=== PATIENT | female | born 1980 | race Two or more races ===

== ENCOUNTER 2023-06-07 10:32 | Inpatient (IN) | payer OTHER ==
[2023-06-07 11:37] VITALS: BMI 53.9
[2023-06-07] MEDS ORDERED: diazePAM 5 MG TABLET PO PRN (12:04)
[2023-06-07] MEDS ORDERED: BISMUTH SUBSALICYLATE 524 MG/30 ML PO PRN (12:10)
[2023-06-07] MEDS ORDERED: P-EPHED 60MG/TRIPROLIDI 2.5MG TABLET PO PRN (12:10)
[2023-06-07] MEDS ORDERED: BENZOCAINE/MENTHOL (CHLORASEPTIC ) LOZENGE MM PRN (12:10)
[2023-06-07] MEDS ORDERED: NICOTINE POLACRILEX 2 MG GUM BUC PRN (12:10)
[2023-06-07] MEDS ORDERED: POLYETHYLENE GLYCOL (HEALTHYLAX) 3350 17 GM PACKET PO PRN (12:10)
[2023-06-07] MEDS ORDERED: LOPERAMIDE HCL 2 MG CAPSULE PO PRN (12:10)
[2023-06-07] MEDS ORDERED: BENZONATATE 200 MG CAPSULE PO PRN (12:10)
[2023-06-07] MEDS ORDERED: ONDANSETRON *ODT* 4 MG TABLET SL PRN (12:10)
[2023-06-07] MEDS ORDERED: MAGNESIUM HYDROX 2400MG/30ML ORAL SUSPENSION 30 ML CUP PO PRN (12:10)
[2023-06-07] MEDS ORDERED: guaiFENesin 600 MG TABLET.ER (FP) PO PRN (12:10)
[2023-06-07] MEDS ORDERED: IBUPROFEN 400 MG TABLET (FP) PO PRN (12:10)
[2023-06-07] MEDS ORDERED: DICYCLOMINE HCL 10 MG CAPSULE PO PRN (12:10)
[2023-06-07] MEDS ORDERED: ALBUTEROL SO4 HFA INHALER IH PRN (12:40)
[2023-06-07] MEDS ORDERED: IBUPROFEN 600 MG TABLET (FP) PO ONE (12:42)
[2023-06-07] MEDS: IBUPROFEN 600 MG TABLET (FP) PO PRN ×2 (12:53→22:14)
[2023-06-07] MEDS: diazePAM 5 MG TABLET PO SCH ×2 (17:16→22:11)
[2023-06-07] MEDS: MAG HYDROX/AL HYDROX/SIMETH 30 ML UNIT-DOSE CUP PO PRN (17:18)
[2023-06-07] MEDS: THIAMINE HCL 100 MG TABLET (FP) PO SCH (22:10)
[2023-06-07] MEDS: MELATONIN 5 MG TABLETS PO SCH (22:10)
[2023-06-07] MEDS: ATORVASTATIN CA 20 MG TABLET (FP) PO SCH (22:13)
[2023-06-07] MEDS: METHOCARBAMOL 500 MG TABLET PO PRN (22:14)
[2023-06-08] MEDS: diazePAM 5 MG TABLET PO SCH ×4 (04:57→22:25)
[2023-06-08] MEDS: IBUPROFEN 600 MG TABLET (FP) PO PRN (05:09)
[2023-06-08] MEDS: METHOCARBAMOL 500 MG TABLET PO PRN ×3 (05:15→22:26)
[2023-06-08] MEDS: ACETAMINOPHEN 325 MG TABLET (FP) PO PRN ×3 (07:52→22:27)
[2023-06-08 08:21] LABS: HEMATOCRIT 37.1 % (32.4-45.2); HEMOGLOBIN 12.1 GM/dL (10.7-15.3); MCH 30.3 pg (25.7-33.7); MCHC 32.7 g/dl (32.0-36.0); MEAN CELL VOLUME 92.6 fl (80-96); MEAN PLT VOLUME 8.2 fl (7.5-11.1); PLATELET COUNT 301 10^3/uL (134-434); RBC 4.01 M/mm3 (3.60-5.2); RDW 14.4 % (11.6-15.6); WHITE BLOOD COUNT 6.8 K/mm3 (4.0-10.0)
[2023-06-08 08:27] LABS: POTASSIUM 4.2 mmol/L (3.5-5.1)
[2023-06-08 08:29] LABS: CALCIUM 8.8 mg/dL (8.5-10.1)
[2023-06-08 08:30] LABS: ALBUMIN 3.2 g/dl (3.4-5.0); BLOOD UREA NITROGEN 10.4 mg/dL (7-18)
[2023-06-08 08:33] LABS: CREATININE 0.9 mg/dL (0.55-1.3)
[2023-06-08 08:35] LABS: BILIRUBIN,TOTAL 0.3 mg/dL (0.2-1); TOT PROT 6.6 g/dl (6.4-8.2)
[2023-06-08] MEDS: PRENATAL VITAMINS W/ FOLIC ACID TABLET (FP) PO SCH (10:30)
[2023-06-08] MEDS: lamoTRIgine 25 MG TABLET PO SCH (10:30)
[2023-06-08] MEDS: buPROPion HCL 100 MG TABLET PO SCH (10:37)
[2023-06-08] MEDS: hydrOXYzine PAMOATE 25 MG CAPSULE (FP) PO PRN ×3 (10:38→22:29)
[2023-06-08] MEDS: MAG HYDROX/AL HYDROX/SIMETH 30 ML UNIT-DOSE CUP PO PRN (18:24)
[2023-06-08] MEDS: THIAMINE HCL 100 MG TABLET (FP) PO SCH (22:25)
[2023-06-08] MEDS: ATORVASTATIN CA 20 MG TABLET (FP) PO SCH (22:25)
[2023-06-08] MEDS: MELATONIN 5 MG TABLETS PO SCH (22:25)
[2023-06-08 22:54] LABS: PH,URINE 5.5 (5.0-8.0); URINE APPEARANCE TURBID; URINE BILIRUBIN NEGATIVE (NEGATIVE); URINE COLOR YELLOW; URINE GLUCOSE (UA) NEGATIVE (NEGATIVE); URINE KETONE NEGATIVE (NEGATIVE); URINE LEUK ESTERASE NEGATIVE (NEGATIVE); URINE NITRITE NEGATIVE (NEGATIVE); URINE PROTEIN NEGATIVE (NEGATIVE)
[2023-06-09] MEDS: diazePAM 5 MG TABLET PO SCH ×2 (06:14→13:16)
[2023-06-09] MEDS ORDERED: LISINOPRIL 10 MG TABLET PO SCH (10:00)
[2023-06-09] MEDS: buPROPion HCL 100 MG TABLET PO SCH (10:23)
[2023-06-09] MEDS: PRENATAL VITAMINS W/ FOLIC ACID TABLET (FP) PO SCH (10:23)
[2023-06-09] MEDS: METHOCARBAMOL 500 MG TABLET PO PRN (10:25)
[2023-06-09] MEDS: lamoTRIgine 25 MG TABLET PO SCH (10:25)
[2023-06-09] MEDS: ACETAMINOPHEN 325 MG TABLET (FP) PO PRN (10:26)
[2023-06-09] MEDS: hydrOXYzine PAMOATE 25 MG CAPSULE (FP) PO PRN (13:15)
[2023-06-09] MEDS ORDERED: COLLOIDAL OATMEAL 1 BAR EACH TP PRN (13:45)
[2023-06-09 18:03] VITALS: BP 120/62; PULSE 72; RESP 18; TEMP 98.6
[2023-06-09] MEDS: MAG HYDROX/AL HYDROX/SIMETH 30 ML UNIT-DOSE CUP PO PRN (18:35)
[2023-06-10] MEDS ORDERED: diazePAM 5 MG TABLET PO SCH (06:00)
[2023-06-11] MEDS ORDERED: diazePAM 5 MG TABLET PO ONE (06:00)
== END 2023-06-09 18:41 | disposition left against medical advice (07) | DRG 770 ==
LOC: YASAS 10:32 → Y6N 12:14
PROVIDERS: ADMIT Allergy & Immunology; ATTEND Surgery
PROC: HZ2ZZZZ Detoxification Services for Substance Abuse Treatment (ICD-10-PCS; principal; 2023-06-07)
DX: F10.230 Alcohol dependence with withdrawal, uncomplicated (principal); F17.210 Nicotine dependence, cigarettes, uncomplicated; F31.81 Bipolar II disorder; F10.282 Alcohol dependence with alcohol-induced sleep disorder; F10.280 Alcohol dependence with alcohol-induced anxiety disorder; F41.9 Anxiety disorder, unspecified; E78.2 Mixed hyperlipidemia; I10 Essential (primary) hypertension; G47.39 Other sleep apnea; L30.9 Dermatitis, unspecified; J45.40 Moderate persistent asthma, uncomplicated; M54.50 Low back pain, unspecified; G89.29 Other chronic pain; Z62.810 Personal history of physical and sexual abuse in childhood; Z91.410 Personal history of adult physical and sexual abuse; Z85.42 Personal history of malignant neoplasm of other parts of uterus
CPT/HCPCS: 36415; 80053; 80307; 81003; 81025; 85027; 86780; 87635; 87811

== ENCOUNTER 2023-06-12 10:32 | Inpatient (IN) | payer OTHER ==
[2023-06-12 11:02] VITALS: BMI 53.8
[2023-06-12] MEDS ORDERED: NICOTINE POLACRILEX 2 MG GUM BUC PRN (11:14)
[2023-06-12] MEDS ORDERED: COLLOIDAL OATMEAL 1 BAR EACH TP PRN (11:14)
[2023-06-12] MEDS ORDERED: BENZOCAINE/MENTHOL (CHLORASEPTIC ) LOZENGE MM PRN (11:14)
[2023-06-12] MEDS ORDERED: BENZONATATE 200 MG CAPSULE PO PRN (11:14)
[2023-06-12] MEDS ORDERED: LOPERAMIDE HCL 2 MG CAPSULE PO PRN (11:14)
[2023-06-12] MEDS ORDERED: guaiFENesin 600 MG TABLET.ER (FP) PO PRN (11:14)
[2023-06-12] MEDS ORDERED: MAGNESIUM HYDROX 2400MG/30ML ORAL SUSPENSION 30 ML CUP PO PRN (11:14)
[2023-06-12] MEDS ORDERED: POLYETHYLENE GLYCOL (HEALTHYLAX) 3350 17 GM PACKET PO PRN (11:14)
[2023-06-12] MEDS ORDERED: NALOXONE HCL (KLOXXADO) 8 MG SPRAY NS PRN (11:14)
[2023-06-12] MEDS ORDERED: NALOXONE HCL 0.4 MG/ML VIAL IM PRN (11:14)
[2023-06-12] MEDS ORDERED: ALBUTEROL SO4 HFA INHALER IH PRN (12:51)
[2023-06-12] MEDS ORDERED: MAG HYDROX/AL HYDROX/SIMETH 30 ML UNIT-DOSE CUP ONE (13:51)
[2023-06-12] MEDS: MAG HYDROX/AL HYDROX/SIMETH 30 ML UNIT-DOSE CUP PO PRN ×2 (13:58→19:26)
[2023-06-12] MEDS: MELATONIN 5 MG TABLETS PO SCH (21:25)
[2023-06-12] MEDS: ATORVASTATIN CA 20 MG TABLET (FP) PO SCH (21:25)
[2023-06-12] MEDS: THIAMINE HCL 100 MG TABLET (FP) PO SCH (21:25)
[2023-06-12] MEDS: hydrOXYzine PAMOATE 25 MG CAPSULE (FP) PO PRN (21:26)
[2023-06-12] MEDS: ACETAMINOPHEN 325 MG TABLET (FP) PO PRN (21:27)
[2023-06-12] MEDS ORDERED: SENNOSIDES 8.6MG TABLET (FP) PO SCH (22:00)
[2023-06-13] MEDS: IBUPROFEN 600 MG TABLET (FP) PO PRN ×3 (03:44→18:10)
[2023-06-13] MEDS: PRENATAL VITAMINS W/ FOLIC ACID TABLET (FP) PO SCH (09:42)
[2023-06-13] MEDS: LISINOPRIL 10 MG TABLET PO SCH (09:42)
[2023-06-13] MEDS ORDERED: lamoTRIgine 25 MG TABLET PO SCH (10:15)
[2023-06-13] MEDS: buPROPion HCL 100 MG TABLET PO SCH (11:08)
[2023-06-13] MEDS: lamoTRIgine 25 MG TABLET PO SCH (11:08)
[2023-06-13] MEDS: MAG HYDROX/AL HYDROX/SIMETH 30 ML UNIT-DOSE CUP PO PRN ×2 (12:29→19:59)
[2023-06-13 13:47] LABS: PH,URINE 5.5 (5.0-8.0); URINE APPEARANCE CLEAR; URINE BILIRUBIN NEGATIVE (NEGATIVE); URINE COLOR YELLOW; URINE GLUCOSE (UA) NEGATIVE (NEGATIVE); URINE KETONE NEGATIVE (NEGATIVE); URINE LEUK ESTERASE NEGATIVE (NEGATIVE); URINE NITRITE NEGATIVE (NEGATIVE); URINE PROTEIN NEGATIVE (NEGATIVE); URINE UROBILINOGEN 0.2 mg/dL (0.2-1.0)
[2023-06-13] MEDS: SENNOSIDES 8.6MG TABLET (FP) PO PRN (18:15)
[2023-06-13] MEDS: THIAMINE HCL 100 MG TABLET (FP) PO SCH (21:34)
[2023-06-13] MEDS: MELATONIN 5 MG TABLETS PO SCH (21:34)
[2023-06-13] MEDS: ATORVASTATIN CA 20 MG TABLET (FP) PO SCH (21:34)
[2023-06-13] MEDS: OLANZapine 5 MG TABLET PO SCH (21:35)
[2023-06-13] MEDS: ACETAMINOPHEN 325 MG TABLET (FP) PO PRN (21:36)
[2023-06-13] MEDS: BACLOFEN 10 MG TABLET (FP) PO SCH (21:37)
[2023-06-14] MEDS: PRENATAL VITAMINS W/ FOLIC ACID TABLET (FP) PO SCH (09:43)
[2023-06-14] MEDS: LISINOPRIL 10 MG TABLET PO SCH (09:43)
[2023-06-14] MEDS: IBUPROFEN 600 MG TABLET (FP) PO PRN (09:43)
[2023-06-14] MEDS: SENNOSIDES 8.6MG TABLET (FP) PO PRN (09:43)
[2023-06-14] MEDS: buPROPion HCL 100 MG TABLET PO SCH (09:44)
[2023-06-14] MEDS: lamoTRIgine 25 MG TABLET PO SCH (09:44)
[2023-06-14] MEDS: ACETAMINOPHEN 325 MG TABLET (FP) PO PRN ×2 (14:21→21:33)
[2023-06-14] MEDS: BACLOFEN 10 MG TABLET (FP) PO SCH (21:30)
[2023-06-14] MEDS: ATORVASTATIN CA 20 MG TABLET (FP) PO SCH (21:30)
[2023-06-14] MEDS: OLANZapine 5 MG TABLET PO SCH (21:30)
[2023-06-14] MEDS: THIAMINE HCL 100 MG TABLET (FP) PO SCH (21:30)
[2023-06-14] MEDS: MELATONIN 5 MG TABLETS PO SCH (21:30)
[2023-06-14] MEDS: hydrOXYzine PAMOATE 25 MG CAPSULE (FP) PO PRN (21:31)
[2023-06-15] MEDS: IBUPROFEN 600 MG TABLET (FP) PO PRN ×2 (01:33→21:29)
[2023-06-15] MEDS: PRENATAL VITAMINS W/ FOLIC ACID TABLET (FP) PO SCH (09:47)
[2023-06-15] MEDS: lamoTRIgine 25 MG TABLET PO SCH (09:47)
[2023-06-15] MEDS: LISINOPRIL 10 MG TABLET PO SCH (09:47)
[2023-06-15] MEDS: buPROPion HCL 100 MG TABLET PO SCH (09:47)
[2023-06-15] MEDS: ACETAMINOPHEN 325 MG TABLET (FP) PO PRN (14:46)
[2023-06-15] MEDS: ATORVASTATIN CA 20 MG TABLET (FP) PO SCH (21:29)
[2023-06-15] MEDS: BACLOFEN 10 MG TABLET (FP) PO SCH (21:29)
[2023-06-15] MEDS: THIAMINE HCL 100 MG TABLET (FP) PO SCH (21:29)
[2023-06-15] MEDS: OLANZapine 5 MG TABLET PO SCH (21:29)
[2023-06-15] MEDS: MELATONIN 5 MG TABLETS PO SCH (21:42)
[2023-06-15] MEDS: hydrOXYzine PAMOATE 25 MG CAPSULE (FP) PO PRN (22:27)
[2023-06-16] MEDS: hydrOXYzine PAMOATE 25 MG CAPSULE (FP) PO PRN (05:32)
[2023-06-16] MEDS: IBUPROFEN 600 MG TABLET (FP) PO PRN ×3 (05:32→21:32)
[2023-06-16 07:05] VITALS: RESP 18
[2023-06-16] MEDS: PRENATAL VITAMINS W/ FOLIC ACID TABLET (FP) PO SCH (09:24)
[2023-06-16] MEDS: buPROPion HCL 100 MG TABLET PO SCH (09:24)
[2023-06-16] MEDS: LISINOPRIL 10 MG TABLET PO SCH (09:24)
[2023-06-16] MEDS: lamoTRIgine 25 MG TABLET PO SCH (09:24)
[2023-06-16] MEDS: ACETAMINOPHEN 325 MG TABLET (FP) PO PRN (17:57)
[2023-06-16] MEDS: MELATONIN 5 MG TABLETS PO SCH (21:26)
[2023-06-16] MEDS: ATORVASTATIN CA 20 MG TABLET (FP) PO SCH (21:28)
[2023-06-16] MEDS: OLANZapine 5 MG TABLET PO SCH (21:28)
[2023-06-16] MEDS: THIAMINE HCL 100 MG TABLET (FP) PO SCH (21:28)
[2023-06-16] MEDS: BACLOFEN 10 MG TABLET (FP) PO SCH (21:29)
[2023-06-17] MEDS: IBUPROFEN 600 MG TABLET (FP) PO PRN (02:37)
[2023-06-17] MEDS: lamoTRIgine 25 MG TABLET PO SCH (09:32)
[2023-06-17] MEDS: LISINOPRIL 10 MG TABLET PO SCH (09:32)
[2023-06-17] MEDS: PRENATAL VITAMINS W/ FOLIC ACID TABLET (FP) PO SCH (09:32)
[2023-06-17] MEDS: buPROPion HCL 100 MG TABLET PO SCH (09:32)
[2023-06-17] MEDS: SENNOSIDES 8.6MG TABLET (FP) PO PRN ×2 (09:36→21:26)
[2023-06-17] MEDS: IBUPROFEN 400 MG TABLET (FP) PO PRN (16:05)
[2023-06-17] MEDS: MELATONIN 5 MG TABLETS PO SCH (21:24)
[2023-06-17] MEDS: BACLOFEN 10 MG TABLET (FP) PO SCH (21:25)
[2023-06-17] MEDS: OLANZapine 5 MG TABLET PO SCH (21:26)
[2023-06-17] MEDS: ATORVASTATIN CA 20 MG TABLET (FP) PO SCH (21:26)
[2023-06-17] MEDS: hydrOXYzine PAMOATE 25 MG CAPSULE (FP) PO PRN (21:26)
[2023-06-17] MEDS: THIAMINE HCL 100 MG TABLET (FP) PO SCH (21:26)
[2023-06-17] MEDS: ACETAMINOPHEN 325 MG TABLET (FP) PO PRN (21:32)
[2023-06-18] MEDS: LISINOPRIL 10 MG TABLET PO SCH (09:24)
[2023-06-18] MEDS: lamoTRIgine 25 MG TABLET PO SCH (09:24)
[2023-06-18] MEDS: PRENATAL VITAMINS W/ FOLIC ACID TABLET (FP) PO SCH (09:25)
[2023-06-18] MEDS: buPROPion HCL 100 MG TABLET PO SCH (09:25)
[2023-06-18] MEDS: IBUPROFEN 400 MG TABLET (FP) PO PRN (09:27)
[2023-06-18] MEDS ORDERED: BISACODYL 10 MG SUPP.RECT PR ONE (10:00)
[2023-06-18] MEDS ORDERED: BISACODYL 10 MG SUPP.RECT PR PRN (10:21)
[2023-06-18] MEDS ORDERED: LACTULOSE 20 GM/30 ML UDC (FOR ORAL USE ONLY) PO ONE (15:23)
[2023-06-18] MEDS: FUROSEMIDE 20 MG TABLET (FP) PO SCH (19:50)
[2023-06-18] MEDS: MELATONIN 5 MG TABLETS PO SCH (21:25)
[2023-06-18] MEDS: OLANZapine 5 MG TABLET PO SCH (21:26)
[2023-06-18] MEDS: THIAMINE HCL 100 MG TABLET (FP) PO SCH (21:26)
[2023-06-18] MEDS: ATORVASTATIN CA 20 MG TABLET (FP) PO SCH (21:26)
[2023-06-18] MEDS: BACLOFEN 10 MG TABLET (FP) PO SCH (21:26)
[2023-06-18] MEDS: ACETAMINOPHEN 325 MG TABLET (FP) PO PRN (21:28)
[2023-06-19] MEDS: IBUPROFEN 600 MG TABLET (FP) PO PRN ×3 (01:05→21:47)
[2023-06-19] MEDS ORDERED: FUROSEMIDE 20 MG TABLET (FP) PO SCH (06:00)
[2023-06-19] MEDS: FUROSEMIDE 20 MG TABLET (FP) PO SCH ×2 (06:14→14:45)
[2023-06-19] MEDS: PRENATAL VITAMINS W/ FOLIC ACID TABLET (FP) PO SCH (09:42)
[2023-06-19] MEDS: buPROPion HCL 100 MG TABLET PO SCH (09:42)
[2023-06-19] MEDS: LISINOPRIL 10 MG TABLET PO SCH (09:42)
[2023-06-19] MEDS: lamoTRIgine 25 MG TABLET PO SCH (09:43)
[2023-06-19] MEDS: hydrOXYzine PAMOATE 25 MG CAPSULE (FP) PO PRN ×2 (13:28→18:13)
[2023-06-19] MEDS ORDERED: lamoTRIgine 25 MG TABLET PO ONE (13:45)
[2023-06-19] MEDS: ATORVASTATIN CA 20 MG TABLET (FP) PO SCH (21:39)
[2023-06-19] MEDS: MELATONIN 5 MG TABLETS PO SCH (21:39)
[2023-06-19] MEDS: BACLOFEN 10 MG TABLET (FP) PO SCH (21:40)
[2023-06-19] MEDS: THIAMINE HCL 100 MG TABLET (FP) PO SCH (21:40)
[2023-06-19] MEDS: OLANZapine 10 MG TABLET PO SCH (21:45)
[2023-06-20] MEDS: IBUPROFEN 600 MG TABLET (FP) PO PRN ×2 (03:19→13:44)
[2023-06-20] MEDS: FUROSEMIDE 20 MG TABLET (FP) PO SCH ×2 (06:17→13:44)
[2023-06-20] MEDS: LISINOPRIL 10 MG TABLET PO SCH (09:56)
[2023-06-20] MEDS: lamoTRIgine 25 MG TABLET PO SCH (09:56)
[2023-06-20] MEDS: buPROPion HCL 100 MG TABLET PO SCH (09:56)
[2023-06-20] MEDS: PRENATAL VITAMINS W/ FOLIC ACID TABLET (FP) PO SCH (09:57)
[2023-06-20] MEDS ORDERED: MAGNESIUM CITRATE 300 ML BOTTLE PO ONE (14:56)
[2023-06-20] MEDS: ATORVASTATIN CA 20 MG TABLET (FP) PO SCH (21:27)
[2023-06-20] MEDS: MELATONIN 5 MG TABLETS PO SCH (21:27)
[2023-06-20] MEDS: BACLOFEN 10 MG TABLET (FP) PO SCH (21:27)
[2023-06-20] MEDS: THIAMINE HCL 100 MG TABLET (FP) PO SCH (21:27)
[2023-06-20] MEDS: BACITRACIN 0.9 GM PACKET TP SCH (21:28)
[2023-06-20] MEDS: OLANZapine 10 MG TABLET PO SCH (21:30)
[2023-06-21] MEDS: IBUPROFEN 600 MG TABLET (FP) PO PRN ×2 (01:13→21:40)
[2023-06-21] MEDS: ACETAMINOPHEN 325 MG TABLET (FP) PO PRN (04:22)
[2023-06-21] MEDS: PRENATAL VITAMINS W/ FOLIC ACID TABLET (FP) PO SCH (09:50)
[2023-06-21] MEDS: LISINOPRIL 10 MG TABLET PO SCH (09:50)
[2023-06-21] MEDS: lamoTRIgine 25 MG TABLET PO SCH (09:51)
[2023-06-21] MEDS: BACITRACIN 0.9 GM PACKET TP SCH (09:51)
[2023-06-21] MEDS: buPROPion HCL 100 MG TABLET PO SCH (11:20)
[2023-06-21] MEDS: FUROSEMIDE 20 MG TABLET (FP) PO SCH (15:04)
[2023-06-21] MEDS: ATORVASTATIN CA 20 MG TABLET (FP) PO SCH (21:37)
[2023-06-21] MEDS: OLANZapine 10 MG TABLET PO SCH (21:37)
[2023-06-21] MEDS: MELATONIN 5 MG TABLETS PO SCH (21:37)
[2023-06-21] MEDS: THIAMINE HCL 100 MG TABLET (FP) PO SCH (21:37)
[2023-06-21] MEDS: BACLOFEN 10 MG TABLET (FP) PO SCH (21:37)
[2023-06-21] MEDS: hydrOXYzine PAMOATE 25 MG CAPSULE (FP) PO PRN (21:40)
[2023-06-22] MEDS: IBUPROFEN 600 MG TABLET (FP) PO PRN (04:05)
[2023-06-22] MEDS: FUROSEMIDE 20 MG TABLET (FP) PO SCH (06:45)
[2023-06-22 07:23] VITALS: BP 140/78; PULSE 81; TEMP 97.3
[2023-06-22] MEDS: lamoTRIgine 25 MG TABLET PO SCH (09:01)
[2023-06-22] MEDS: buPROPion HCL 100 MG TABLET PO SCH (09:01)
[2023-06-22] MEDS: LISINOPRIL 10 MG TABLET PO SCH (09:01)
[2023-06-22] MEDS: BACITRACIN 0.9 GM PACKET TP SCH (09:01)
[2023-06-22] MEDS: PRENATAL VITAMINS W/ FOLIC ACID TABLET (FP) PO SCH (09:01)
[2023-06-26] MEDS ORDERED: lamoTRIgine 25 MG TABLET PO SCH (10:00)
== END 2023-06-22 09:23 | disposition home or self-care (01) | DRG 772 ==
LOC: YASAS 10:32 → Y5N 15:59
PROVIDERS: ADMIT Psychiatry & Neurology Pain Medicine; ATTEND Psychiatry & Neurology Pain Medicine
PROC: HZ42ZZZ Group Counseling for Substance Abuse Treatment, Cognitive-Behavioral (ICD-10-PCS; principal; 2023-06-12)
DX: F10.20 Alcohol dependence, uncomplicated (principal); F17.210 Nicotine dependence, cigarettes, uncomplicated; F41.9 Anxiety disorder, unspecified; F32.A Depression, unspecified; G47.39 Other sleep apnea; E78.5 Hyperlipidemia, unspecified; I10 Essential (primary) hypertension; J45.40 Moderate persistent asthma, uncomplicated; M54.50 Low back pain, unspecified; G89.29 Other chronic pain; R60.0 Localized edema; E66.09 Other obesity due to excess calories; Z68.43 Body mass index [BMI] 50.0-59.9, adult; Z85.42 Personal history of malignant neoplasm of other parts of uterus; Z62.810 Personal history of physical and sexual abuse in childhood; Z91.410 Personal history of adult physical and sexual abuse
CPT/HCPCS: 36415; 80307; 81003; 81025; 87635; 87811; J0475

== ENCOUNTER 2023-12-28 12:13 | Inpatient (IN) | payer OTHER ==
[2023-12-28 13:39] VITALS: BMI 55.5
[2023-12-28] MEDS ORDERED: IBUPROFEN 400 MG TABLET (FP) PO PRN (14:06)
[2023-12-28] MEDS ORDERED: NICOTINE POLACRILEX 2 MG LOZENGE BC PRN (14:06)
[2023-12-28] MEDS ORDERED: BENZONATATE 200 MG CAPSULE PO PRN (14:06)
[2023-12-28] MEDS ORDERED: NICOTINE POLACRILEX 2 MG GUM BUC PRN (14:06)
[2023-12-28] MEDS ORDERED: LOPERAMIDE HCL 2 MG CAPSULE PO PRN (14:06)
[2023-12-28] MEDS ORDERED: BISMUTH SUBSALICYLATE 524 MG/30 ML PO PRN (14:06)
[2023-12-28] MEDS ORDERED: DICYCLOMINE HCL 10 MG CAPSULE PO PRN (14:06)
[2023-12-28] MEDS ORDERED: guaiFENesin 600 MG TABLET.ER (FP) PO PRN (14:06)
[2023-12-28] MEDS ORDERED: POLYETHYLENE GLYCOL (HEALTHYLAX) 3350 17 GM PACKET PO PRN (14:06)
[2023-12-28] MEDS ORDERED: IBUPROFEN 600 MG TABLET (FP) PO ONE (15:21)
[2023-12-28] MEDS ORDERED: chlordiazePOXIDE HCL 25 MG CAPSULE ONE (15:21)
[2023-12-28] MEDS: IBUPROFEN 600 MG TABLET (FP) PO PRN (15:24)
[2023-12-28] MEDS: chlordiazePOXIDE HCL 25 MG CAPSULE PO ONE (15:24)
[2023-12-28] MEDS ORDERED: ONDANSETRON *ODT* 4 MG TABLET ONE (16:02)
[2023-12-28] MEDS: ONDANSETRON *ODT* 4 MG TABLET SL PRN (16:04)
[2023-12-28] MEDS: chlordiazePOXIDE HCL 25 MG CAPSULE PO SCH (17:22)
[2023-12-28] MEDS: METHOCARBAMOL 500 MG TABLET PO PRN (19:22)
[2023-12-28] MEDS: chlordiazePOXIDE HCL 25 MG CAPSULE PO PRN (19:22)
[2023-12-28] MEDS: MELATONIN 5 MG TABLETS PO SCH (22:23)
[2023-12-28] MEDS: THIAMINE 100 MG TABLET PO SCH (22:23)
[2023-12-29] MEDS: PRENATAL VITAMINS W/ FOLIC ACID TABLET (FP) PO SCH (10:36)
[2023-12-29 10:58] LABS: HEMATOCRIT 34.6 % (32.4-45.2); HEMOGLOBIN 11.7 GM/dL (10.7-15.3); MCH 30.3 pg (25.7-33.7); MCHC 33.8 g/dl (32.0-36.0); MEAN CELL VOLUME 89.6 fl (80-96); MEAN PLT VOLUME 7.6 fl (7.5-11.1); PLATELET COUNT 266 10^3/uL (134-434); RBC 3.86 M/mm3 (3.60-5.2); RDW 14.6 % (11.6-15.6); WHITE BLOOD COUNT 5.4 K/mm3 (4.0-10.0)
[2023-12-29 11:00] LABS: POTASSIUM 3.8 mmol/L (3.5-5.1)
[2023-12-29 11:07] LABS: CALCIUM 8.8 mg/dL (8.5-10.1)
[2023-12-29 11:08] LABS: BLOOD UREA NITROGEN 13.7 mg/dL (7-18)
[2023-12-29 11:09] LABS: BILIRUBIN,TOTAL 0.4 mg/dL (0.2-1)
[2023-12-29 11:10] LABS: TOT PROT 6.2 g/dl (6.4-8.2)
[2023-12-29] MEDS: lamoTRIgine 25 MG TABLET PO SCH (11:20)
[2023-12-29] MEDS: buPROPion HCL 100 MG TABLET PO SCH ×3 (12:03→13:52)
[2023-12-29] MEDS: MAG HYDROX/AL HYDROX/SIMETH 30 ML UNIT-DOSE CUP PO PRN (12:53)
[2023-12-29] MEDS ORDERED: ALBUTEROL SO4 HFA INHALER IH PRN (13:01)
[2023-12-29] MEDS: hydrOXYzine PAMOATE 25 MG CAPSULE (FP) PO SCH (13:52)
[2023-12-29] MEDS: HYDROCHLOROTHIAZIDE 12.5 MG CAPSULE (FP) PO SCH (13:53)
[2023-12-29] MEDS: LISINOPRIL 10 MG TABLET PO SCH (13:53)
[2023-12-29] MEDS: PATIENT'S OWN MEDICATION (NON-FORMULARY) (Hydroxyzine Hcl [Hydroxyzine Hcl] 10 MG Tablet) PO SCH (13:56)
[2023-12-29] MEDS: NICOTINE 14 MG/24 HOURS TOPICAL PATCH TD SCH (14:58)
[2023-12-29] MEDS: TRIAMCINOLONE ACET 0.1% CREAM 15 GM TUBE TP PRN (14:58)
[2023-12-29] MEDS ORDERED: hydrOXYzine HCL 10 MG/5 ML LIQUID BULK BOTTLE PO SCH (22:00)
[2023-12-29] MEDS: ATORVASTATIN CA 20 MG TABLET (FP) PO SCH (22:20)
[2023-12-29] MEDS: traZODone HCL 50 MG TABLET (FP) PO PRN (22:20)
[2023-12-29] MEDS: BENZOCAINE/MENTHOL (CHLORASEPTIC ) LOZENGE MM PRN (22:23)
[2023-12-30] MEDS: chlordiazePOXIDE HCL 25 MG CAPSULE PO SCH (05:44)
[2023-12-30] MEDS: lamoTRIgine 100 MG TABLET PO SCH (10:05)
[2023-12-30] MEDS: ACETAMINOPHEN 325 MG TABLET (FP) PO PRN (22:11)
[2023-12-30] MEDS: MAGNESIUM HYDROX 2400MG/30ML ORAL SUSPENSION 30 ML CUP PO PRN (22:27)
[2023-12-31] MEDS ORDERED: chlordiazePOXIDE HCL 10 MG CAPSULE PO PRN
[2023-12-31] MEDS: chlordiazePOXIDE HCL 10 MG CAPSULE PO SCH (05:40)
[2023-12-31] MEDS: buPROPion HCL 100 MG TABLET PO SCH (13:18)
[2024-01-01] MEDS: chlordiazePOXIDE HCL 10 MG CAPSULE PO SCH (05:34)
[2024-01-01 08:29] VITALS: BP 128/70; PULSE 74; RESP 18; TEMP 97.6
[2024-01-02] MEDS ORDERED: chlordiazePOXIDE HCL 10 MG CAPSULE PO ONE (05:00)
== END 2024-01-01 11:19 | disposition home or self-care (01) | DRG 775 ==
LOC: YASAS 12:13 → Y3N 15:42
PROVIDERS: ADMIT Allergy & Immunology; ATTEND Surgery
PROC: HZ2ZZZZ Detoxification Services for Substance Abuse Treatment (ICD-10-PCS; principal; 2023-12-28)
DX: F10.230 Alcohol dependence with withdrawal, uncomplicated (principal); F17.210 Nicotine dependence, cigarettes, uncomplicated; F10.282 Alcohol dependence with alcohol-induced sleep disorder; F10.280 Alcohol dependence with alcohol-induced anxiety disorder; F31.81 Bipolar II disorder; E78.5 Hyperlipidemia, unspecified; I10 Essential (primary) hypertension; G47.33 Obstructive sleep apnea (adult) (pediatric); J45.909 Unspecified asthma, uncomplicated; M54.50 Low back pain, unspecified; G89.29 Other chronic pain
CPT/HCPCS: 36415; 80053; 80305; 80307; 81025; 85027; 86780; 93005; 93010; Q0162